=== PATIENT | male | born 1975 ===

== ENCOUNTER 2025-11-17 09:10 | Outpatient (CLI) | payer BC | END 2025-11-17 09:11 | disposition home or self-care (01) | LOC: CSHSLEEP 09:10 | DX: G47.33 Obstructive sleep apnea (adult) (pediatric) (principal); R53.83 Other fatigue; R09.89 Other specified symptoms and signs involving the circulatory and respiratory systems; G25.89 Other specified extrapyramidal and movement disorders; R51.9 Headache, unspecified; E66.9 Obesity, unspecified; Z68.35 Body mass index [BMI] 35.0-35.9, adult; R06.83 Snoring | CPT/HCPCS: 95800 ==